=== PATIENT | female | born 1965 | race Caucasian/White ===

== ENCOUNTER 2016-04-17 01:05 | Inpatient (IN) | payer SELFPAY ==
[~2016-04-17] VITALS: Ht 154.9 cm; Wt 80.5 kg
[2016-04-17] VITALS (24 sets, daily range): BP systolic 99–133; BP diastolic 55–86; PULSE 77–98; RESP 12–18; Ht 154.9 cm; Wt 80.5 kg
[2016-04-17] MEDS ORDERED: ONDANSETRON 4 MG INJ IV STA (05:11)
[2016-04-17] MEDS ORDERED: SOD CHLORIDE 0.9% 1,000 ML IV STA (05:11)
[2016-04-17] MEDS ORDERED: morphine 2 MG INJ IV STA (05:11)
[2016-04-17 05:58] LABS: BASOPHILS % 0.4 % (0.0-2.0); EOSINOPHILS # 0.1 10^3/ul (0.0-0.5); EOSINOPHILS % 1.4 % (0.0-7.0); HEMATOCRIT 40.8 % (37.0-47.0); HEMOGLOBIN 13.9 g/dl (12.0-16.0); LYMPHOCYTES # 2.5 10^3/ul (0.8-2.9); LYMPHOCYTES % 34.7 % (15.0-51.0); MEAN CORPUSCULAR HEMOGLOBIN 30.5 pg (29.0-33.0); MEAN CORPUSCULAR HGB CONC 34.2 g/dl (32.0-37.0); MEAN CORPUSCULAR VOLUME 89.4 fl (82.0-101.0); MONOCYTE # 0.5 10^3/ul (0.3-0.9); MONOCYTES % 6.6 % (0.0-11.0); NEUTROPHIL # 4.1 10^3/ul (1.6-7.5); NEUTROPHILS % 56.9 % (39.0-77.0); PLATELET COUNT 182 10^3/UL (140-440); RED BLOOD COUNT 4.56 10^6/ul (4.20-5.40); UNCORRECTED WBC 7.2 10^3/ul (4.8-10.8); WHITE BLOOD COUNT 7.2 10^3/ul (4.8-10.8)
[2016-04-17 06:04] LABS: INR 0.9; PROTIME 12.1 Sec (12.2-14.2); PT RATIO 0.9
[2016-04-17 06:05] LABS: PARTIAL THROMBOPLASTIN TIME 26.7 Sec (25.0-35.0)
[2016-04-17 06:07] LABS: ALBUMIN 4.7 g/dl (3.3-4.9)
[2016-04-17 06:08] LABS: POTASSIUM 4.3 mmol/L (3.5-5.1)
--- NOTE | 2016-04-17 06:08 | RADRPT ---
PROCEDURE: CT Abdomen and pelvis without contrast. CLINICAL INDICATION: Abdominal pain. TECHNIQUE: CT scan of the abdomen and pelvis was performed on a multi-detector high-resolution CT scanner. Contiguous axial images were obtained from the lung bases to the ischial tuberosities wit hout intravenous contrast. Coronal and sagittal reformatted images were also obtained. Images were reviewed on the PACS workstation. One or more of the following dose reduction techniques were used: - Automated exposure control. - Adjustment of the mA and/or kV according to patient size. - Use of iterative reconstruction technique. Exam CTD/vol = 15.47 mGy. Total exam DLP = 873.25 mGy-cm. COMPARISON: None. FINDINGS: Evaluation of the lung bases demonstrates no pleural or parenchymal disease. Abdomen: The liver is normal in size. There is a hypodense lesion within the posterior segment of the right lobe of the liver measuring 1.8 x 1.4 cm. There is no dilatation of the biliary tree. Th e gallbladder is not distended. The spleen, pancreas and bilateral adrenal glands are within normal limits. Bilateral kidneys are normal in size with no contour deforming mass identified. There is no radiopaque renal or ureteral calculus identified. There is no hydronephrosis or hydroureter. Th ere is no retroperitoneal adenopathy. The abdominal aorta is of normal caliber with scattered ather osclerotic calcifications. There is no abnormal bowel wall thickening or distension. There is no bowel obstruction or free air . There is a mildly distended appendix extending inferior to the cecum measuring up to 10 mm in maximilian meter. There is no diverticulosis or diverticulitis. There is no ascites. Pelvis: The bladder is unremarkable. The uterus and adnexa are within normal limits. There is no significant pelvic adenopathy or free fluid. Evaluation of the osseous structures demonstrates no suspicious lytic or blastic lesion. IMPRESSION: Mildly distended appendix suspicious for early appendicitis. Clinical correlation and follow-up is r ecommended. Hypodense lesion within the right lobe of the liver, indeterminate. Further evaluation can be made by ultrasound or contrast enhanced CT. Mild vascular calcifications reflective of atherosclerosis. A call report was made to Dr. Hernandez at 06:06 a.m. .Adolph Hidalgo, MD, MD Date Time Electronically viewed and signed by .Adolph Hidalgo MD, MD on 04/17/2016 06:08 .T/
[2016-04-17 06:10] LABS: ADD UMIC YES; ALBUMIN/GLOBULIN RATIO 1.23; BILIRUBIN,INDIRECT 0.1 mg/dl (0-1.1); BILIRUBIN,TOTAL 0.1 mg/dl (0.2-1.3); CREATININE 0.69 mg/dl (0.44-1.00); TOTAL PROTEIN 8.5 g/dl (6.1-8.1); URINE BILIRUBIN (Dip) NEGATIVE (NEGATIVE); URINE BLOOD (Dip) TRACE (NEGATIVE); URINE COLOR LT. YELLOW (YELLOW); URINE GLUCOSE (Dip) NEGATIVE (NEGATIVE); URINE KETONES (Dip) NEGATIVE (NEGATIVE); URINE LEUKOCYTE ESTERASE (Dip) NEGATIVE (NEGATIVE); URINE NITRITE (Dip) NEGATIVE (NEGATIVE); URINE TOTAL PROTEIN (Dip) NEGATIVE (NEGATIVE); URINE UROBILINOGEN (Dip) 0.2 E.U./dL (0.1-1.0)
[2016-04-17 06:11] LABS: CALCIUM 9.8 mg/dl (8.4-10.2)
[2016-04-17 06:20] LABS: CONDITION 1
[2016-04-17 06:36] LABS: BACTERIA,URINE MODERATE; SQUAMOUS EPITHELIAL CELL,UR MODERATE; URINE RBCS NONE SEEN /HPF (0)
--- NOTE | 2016-04-17 06:55 | ERA ---
ER Documentation Chief Complaint Date/Time DATE: 04/17/16 TIME: 06:53 Chief Complaint AP X3 Days, Nausea HPI This 30-year-old female states that she had abdominal pain that begun yesterday and her mid abdomen. Today the pain localizing to the right lower quadrant. She' s also had nausea with no vomiting. Denies fever and chills. Pain is described as a sharp pain that is intermittent and comes in waves. The pain is gotten worse. ROS All systems reviewed and are negative except as per history of present illness. Allergies Allergies: Coded Allergies: No Known Allergy (Unverified , 04/17/16) PMhx/Soc Medical and Surgical Hx: pt denies Medical Hx, pt denies Surgical Hx History of Surgery: No Anesthesia Reaction: No Hx Neurological Disorder: No Hx Respiratory Disorders: No Hx Cardiac Disorders: No Hx Psychiatric Problems: No Hx Miscellaneous Medical Probl: No Hx Alcohol Use: No Hx Substance Use: No Hx Tobacco Use: Yes Smoking Status: Current every day smoker Physical Exam Vitals Vital Signs Date Time Temp Pulse Resp B/P Pulse Ox O2 Delivery O2 Flow Rate FiO2 04/17/16 06:44 78 18 136/68 99 Room Air 04/17/16 01:23 98.2 102 18 168/77 99 Physical Exam Const: [] No distress Head: Atraumatic Eyes: Normal Conjunctiva ENT: Normal External Ears, Nose and Mouth. Neck: Full range of motion..~ No meningismus. Resp: Clear to auscultation bilaterally Cardio: Regular rate and rhythm, no murmurs Abd: Soft, right lower quadrant tenderness with mild voluntary guarding,, non distended. Normal bowel sounds Skin: No petechiae or rashes Back: No midline or flank tenderness Ext: No cyanosis, or edema Neur: Awake and alert and oriented 3, no focal deficits Psych: Normal Mood and Affect Result Diagram: 04/17/16 0524 04/17/16 0524 Results 24 hrs Laboratory Tests Test 04/17/16 05:24 Activated Partial Thromboplast Time 26.7Sec Alanine Aminotransferase (ALT/SGPT) 85IU/L Albumin 4.7g/dl Albumin/Globulin Ratio 1.23 Alkaline Phosphatase 126IU/L Anion Gap 20 Aspartate Amino Transf (AST/SGOT) 86IU/L Basophils # 0.010^3/ul Basophils % 0.4% Blood Morphology Comment Blood Urea Nitrogen 15mg/dl Calcium Level 9.8mg/dl Carbon Dioxide Level 26mmol/L Chloride Level 106mmol/L Creatinine 0.69mg/dl Direct Bilirubin 0.00mg/dl Eosinophils # 0.110^3/ul Eosinophils % 1.4% Globulin 3.80g/dl Glucose Level 112mg/dl Hematocrit 40.8% Hemoglobin 13.9g/dl INR International Normalized Ratio 0.90 Indirect Bilirubin 0.1mg/dl Lipase 176U/L Lymphocytes # 2.510^3/ul Lymphocytes % 34.7% Mean Corpuscular Hemoglobin 30.5pg Mean Corpuscular Hemoglobin Concent 34.2g/dl Mean Corpuscular Volume 89.4fl Mean Platelet Volume 11.0fl Monocytes # 0.510^3/ul Monocytes % 6.6% Neutrophils # 4.110^3/ul Neutrophils % 56.9% Nucleated Red Blood Cells # 0.010^3/ul Nucleated Red Blood Cells % 0.0/100WBC Platelet Count 11267^3/UL Potassium Level 4.3mmol/L Prothrombin Time 12.1Sec Prothrombin Time Ratio 0.9 Red Blood Count 4.5610^6/ul Red Cell Distribution Width 13.0% Sodium Level 148mmol/L Total Bilirubin 0.1mg/dl Total Protein 8.5g/dl Urine Bacteria MODERATE Urine Bilirubin NEGATIVE Urine Clarity CLEAR Urine Color LT. YELLOW Urine Glucose NEGATIVE% Urine Hemoglobin TRACE Urine Ketones NEGATIVE Urine Leukocyte Esterase NEGATIVE Urine Microscopic RBC NONE SEEN/HPF Urine Microscopic WBC 5-10/HPF Urine Nitrite NEGATIVE Urine Specific Haworth 1.025 Urine Squamous Epithelial Cells MODERATE Urine Total Protein NEGATIVE Urine Urobilinogen 0.2 E.U./dL Urine pH 5.5 White Blood Count 7.210^3/ul Current Medications Medications (Trade) Dose Ordered Sig/Chana Route PRN Reason Start Time Stop Time Status Last Admin Dose Admin Sodium Chloride (NS) 1,000 ml @ 1,000 mls/hr Q1H STAT IV 04/17/16 05:11 04/17/16 06:10 DC 04/17/16 05:44 Morphine Sulfate (morphine) 2 mg ONCE STAT IV 04/17/16 05:11 04/17/16 05:13 DC 04/17/16 05:45 Ondansetron HCl (Zofran Inj) 4 mg ONCE STAT IV 04/17/16 05:11 04/17/16 05:13 DC 04/17/16 05:45 Procedures/MDM Acute appendicitis. Patient was given IV fluids as well as Zofran which resolved her nausea. She is also given a small dose of morphine. Stated that she still get pinges of pain but did not want any further pain medication. Spoke with Dr. Schwartz, general surgeon on-call, who will be taking the case. I also notified Dr. Dawson be admitting the patient to medical surgical floor. Departure Diagnosis: Primary Impression: Acute appendicitis Condition: Serious BIPIN CAMPOS DO Apr 17, 2016 06:55
[2016-04-17] MEDS ORDERED: ACETAMINOPHEN 325 MG TAB PO PRN (07:00)
[2016-04-17] MEDS ORDERED: ONDANSETRON 4 MG INJ IV PRN ×4 (07:00→14:00)
[2016-04-17] MEDS ORDERED: morphine 2 MG INJ IV PRN ×3 (07:30→19:00)
[2016-04-17] MEDS ORDERED: ACETAMINOPHEN 650 MG SUPP PR PRN (07:30)
[2016-04-17] MEDS ORDERED: NACL 0.9% 3 ML SYG IV SCH (07:30)
[2016-04-17] MEDS ORDERED: morphine 4 MG/ML VIAL IV PRN (07:36)
[2016-04-17] MEDS: DEXTROSE 5%-0.45% NACL 1,000 ML IV SCH ×3 (07:58→23:21)
--- NOTE | 2016-04-17 11:52 | CONS ---
DATE OF ADMISSION: 04/17/2016 DATE OF CONSULTATION: 04/17/2016 REASON FOR CONSULTATION: Acute appendicitis. HISTORY OF PRESENT ILLNESS: The patient is an otherwise healthy 50-year-old female who presents to the emergency room referred from urgent care. She has a 1 day history of nonspecific abdominal pain localizing to the right lower quadrant. In the emergency room, she was noted to have a tender righ t lower quadrant and a CT scan compatible with early acute appendicitis. The patient was admitted a nd surgical consultation was requested in that regard. She has had no fevers, chills or change in b owel or bladder habits. REVIEW OF SYSTEMS: HEAD, EARS, EYES, NOSE AND THROAT: Unremarkable. PULMONARY: No history of shortness of breath, asthma or pneumonia. CARDIAC: No history of chest pain, ME or arrhythmia. ABDOMEN: As in the HPI. No previous abdominal surgeries. GENITOURINARY: Asymptomatic. MEDICATIONS: None. ALLERGIES: NONE. PHYSICAL EXAMINATION: GENERAL: The patient is an alert, oriented 50-year-old female in no acute distress. HEENT: Head, ears, eyes, nose and throat within normal limits. LUNGS: Clear. HEART: Regular rhythm. ABDOMEN: Tender in the right lower quadrant without guarding or rebound. EXTREMITIES: Unremarkable. LABORATORY DATA: Patient's hematocrit is 40.8 with a white count of 7200. BUN, glucose, electrolyt es are unremarkable. CT findings as noted above. IMPRESSION: Acute appendicitis. PLAN: The patient will be benefited by laparoscopic appendectomy. I have discussed the procedure, outcomes, expectations, alternatives and risks in detail with the patient, who has an excellent unde rstanding of the nature of her situation and agrees to the proposed plan of therapy as outlined. Dictated By: JF SHOEMAKER/SHINE Conf#: [id number] DID#: [id number]
[2016-04-17] MEDS ORDERED: BUPIVACAINE 0.25% (MPF) 30 ML INJ ONE (12:27)
[2016-04-17] MEDS ORDERED: ROCURONIUM 50 MG INJ ONE (12:56)
[2016-04-17] MEDS ORDERED: PROPOFOL 20 ML ONE (12:56)
[2016-04-17] MEDS ORDERED: ONDANSETRON 4 MG INJ ONE (12:57)
[2016-04-17] MEDS ORDERED: MIDAZOLAM 1 MG/ML 2 ML INJ ONE (12:57)
[2016-04-17] MEDS ORDERED: GLYCOPYRROLATE 0.4 MG INJ ONE (13:22)
[2016-04-17] MEDS ORDERED: KETOROLAC 30 MG INJ ONE (13:22)
[2016-04-17] MEDS ORDERED: NEOSTIGMINE 3 MG/3 ML SYRINGE ONE (13:22)
[2016-04-17] MEDS ORDERED: CEFAZOLIN 1 GM INJ ONE (13:22)
[2016-04-17] MEDS ORDERED: METOCLOPRAMIDE 10 MG INJ IV PRN (13:30)
[2016-04-17] MEDS ORDERED: DIPHENHYDRAMINE 50 MG INJ IV PRN (13:30)
[2016-04-17] MEDS ORDERED: HYDROmorphONE (0.2 MG/ML) 10ML SYG IV PRN ×3 (13:30)
[2016-04-17] MEDS ORDERED: HYDROmorphONE 2 MG/ML SYG ONE (13:44)
[2016-04-17] MEDS ORDERED: MEPERIDINE 25 MG INJ ONE (13:56)
--- NOTE | 2016-04-17 14:31 | OPR ---
DATE OF OPERATION: 04/17/2016 PREOPERATIVE DIAGNOSIS: Acute appendicitis. POSTOPERATIVE DIAGNOSIS: Acute appendicitis without localized peritonitis. PROCEDURE: Laparoscopic appendectomy. SURGEON: Jf Schwartz MD ANESTHESIA: General. ANESTHESIOLOGIST: Tiffanie Gruber MD OPERATIVE REPORT: After satisfactory general anesthesia was achieved, the abdomen was prepped and d raped in the usual fashion. The abdomen was insufflated with carbon dioxide through an umbilical Ve ress needle to 15 mmHg pressure. The Veress needle was removed and the umbilical incision extended to 5 mm, through which a 5 mm trocar was placed. A 5 mm 0-degree lens was placed. Laparoscopy show ed an acutely inflamed appendix without localized peritonitis. Under direct visualization, a 5 mm s uprapubic trocar was placed as well as a 12 mm left lower quadrant trocar. A window was made in the mesoappendix through which a vascular linear cutter was placed across the b ase of the cecum, closed and fired, disconnecting the appendix from the cecum. A second firing of t he vascular linear cutter fully freed the appendix, which was placed intact into an EndoCatch, remov ed via the 12 mm port site. Hemostasis of the staple lines was total and irrigant returned clear. The fascial defect in the left lower quadrant was closed with a #1 Vicryl with the assistance of a l aparoscopic closure device. The abdomen was then desufflated. The skin punctures were infiltrated with 30 mL of 0.25% Marcaine with epinephrine and closed with flor. Operative blood loss less th an 10 mL. Sponge and needle counts reported as correct x2. The patient tolerated the procedure wel l and without incident or complication. Dictated By: JF SHOEMAKER/SHINE Conf#: [id number] DID#: [id number]
[2016-04-17] MEDS ORDERED: OXYCODONE/ACETAMINOPHEN (5/325) TAB PO PRN (16:00)
[2016-04-17] MEDS: OXYCODONE/ACETAMINOPHEN (5/325) TAB PO PRN ×2 (16:05→23:20)
[2016-04-17] MEDS: CALCIUM CARBONATE 500 MG CHEW TAB PO SCH (18:07)
[2016-04-18 05:20] LABS: ALBUMIN 3.6 g/dl (3.3-4.9); POTASSIUM 4.3 mmol/L (3.5-5.1)
[2016-04-18 05:22] LABS: BILIRUBIN,INDIRECT 0.3 mg/dl (0-1.1); BILIRUBIN,TOTAL 0.3 mg/dl (0.2-1.3); CREATININE 0.67 mg/dl (0.44-1.00)
[2016-04-18 05:23] LABS: ALBUMIN/GLOBULIN RATIO 1.33; TOTAL PROTEIN 6.3 g/dl (6.1-8.1)
[2016-04-18 05:24] LABS: CALCIUM 8.9 mg/dl (8.4-10.2); MAGNESIUM 1.9 mg/dl (1.7-2.5)
[2016-04-18 05:37] LABS: HEMATOCRIT 33.1 % (37.0-47.0); HEMOGLOBIN 11.2 g/dl (12.0-16.0); MEAN CORPUSCULAR HEMOGLOBIN 30.3 pg (29.0-33.0); MEAN CORPUSCULAR HGB CONC 33.7 g/dl (32.0-37.0); MEAN CORPUSCULAR VOLUME 89.8 fl (82.0-101.0); MEAN PLATELET VOLUME 11.9 fl (7.4-10.4); RED BLOOD COUNT 3.69 10^6/ul (4.20-5.40); WHITE BLOOD COUNT 8.7 10^3/ul (4.8-10.8)
[2016-04-18] MEDS: OXYCODONE/ACETAMINOPHEN (5/325) TAB PO PRN ×2 (07:26→12:50)
[2016-04-18 08:05] VITALS: BP 109/56; RESP 20
[2016-04-18] MEDS: CALCIUM CARBONATE 500 MG CHEW TAB PO SCH ×2 (08:27→13:43)
[2016-04-18] MEDS: DEXTROSE 5%-0.45% NACL 1,000 ML IV SCH (08:28)
[2016-04-18 08:59] LABS: CONDITION 1; LH ANALYZER COMMENTS 1; PLATELET COUNT 162 10^3/UL (140-440); SUSPECT 1; UNCORRECTED WBC 11.1 10^3/ul (4.8-10.8)
[2016-04-18 10:39] LABS: EOSINOPHILS # 0.1 10^3/ul (0.0-0.5); LYMPHOCYTES # 2.8 10^3/ul (0.8-2.9); MONOCYTE # 0.3 10^3/ul (0.3-0.9); NEUTROPHIL # 5.3 10^3/ul (1.6-7.5)
--- NOTE | 2016-04-18 12:43 | PDOCDIS ---
Discharge Instructions CONDITION Patient Condition: Stable HOME CARE INSTRUCTIONS: Diet Instructions: Regular ACTIVITY: Activity Restrictions: Slowly Increase Activity FOLLOW UP/APPOINTMENTS Appointments Take your meds if needed, see your doctor in clinic in 1-2 weeks for follow up. WALT SIMS Apr 18, 2016 12:43
[2016-04-18] MEDS ORDERED: ONDA4VIA2 IV (12:45)
[2016-04-18] MEDS ORDERED: Oxycodone/Acetamin (5/325) PO (12:45)
--- NOTE | 2016-04-18 13:15 | DS ---
DATE OF ADMISSION: 04/17/2016 DATE OF DISCHARGE: 04/18/2016 This is a 51-year-old female originally admitted on admission. It showed 04/17/2001 and being disch arged home pending approval from surgery team on 04/18/2016. The patient came in with abdominal edwige n. She was found with acute appendicitis. Her labs were normal. She underwent a laparoscopic appe ndectomy. Patient tolerated the procedure well. Afterwards, her vital signs were stable. She was able to tolerate a p.o. diet and ambulate, and if we get clearance from the surgery team today, she will be discharged home today in improved condition. If she goes today, she will be sent with Zofra n 4 mg p.o. q.6h. p.r.n., Percocet 5/325 one tab p.o. q.6h. She will need to follow up [facility] doctor in the clinic in the next 1 to 2 weeks. FINAL DIAGNOSES: 1. Abdominal pain secondary to acute appendicitis, status post laparoscopic appendectomy. 2. Mild hypernatremia, resolved. Time spent discharging patient: 35 minutes. Dictated By: WALT BUSTILLO/SHINE Conf#: [id number] DID#: [id number]
--- NOTE | 2016-04-18 13:34 | PN ---
DATE: 04/18/2016 SUBJECTIVE: Status post laparoscopic appendectomy, postoperative day #1. The patient is markedly i mproved symptomatically. She remains afebrile with a normal white count. Her abdominal examination is benign. PLAN: Patient is cleared for discharge home today. Office followup 1 week for staple removal. Dictated By: JF SHOEMAKER/SHINE Conf#: [id number] DID#: [id number]
--- NOTE | 2016-04-19 07:16 | HP ---
DATE OF ADMISSION: 04/17/2016 TIME SEEN: 7 a.m. CHIEF COMPLAINT: Abdominal pain. HISTORY OF PRESENT ILLNESS: The patient is a 50-year-old female with no significant past medical hi story, who presents to the emergency department with a chief complaint of abdominal pain. The pain is localized in the right lower quadrant region. She stated that she has been having this kind of p roblem for many years, but this particular episode started 3 days ago. She reported associated naus ea but no vomiting. She also denied any diarrhea, fever, chills, chest pain, shortness of breath. When she presented to the ER a CAT scan of the abdomen and pelvis showed early appendicitis wi th radiology recommending a followup and additional imaging. Her vitals are stable except for eleva jeff AST and ALT as well as sodium of 148. CBC and CMP are within acceptable range. REVIEW OF SYSTEMS: Was obtained and was negative except as in the HPI. PAST MEDICAL HISTORY: As per HPI. SOCIAL HISTORY: Denies any history of alcohol or illicit drug use. Drinks alcohol rarely. ALLERGIES: NO KNOWN DRUG ALLERGIES. HOME MEDICATIONS: None. PHYSICAL EXAMINATION: VITAL SIGNS: Stable. GENERAL: Overweight female lying in the gurney in no acute distress, answering questions appropria tely and able to speak in full sentences. HEENT: No obvious head deformity. Pupils reactive to light. Extraocular muscles intact. CARDIOVASCULAR: Regular rate and rhythm. No extra sounds. LUNGS: Clear. ABDOMEN: Soft. There is tenderness in the right lower quadrant region, mainly to deep palpation wi th minimal guarding to deep palpation. No rigidity. No rebound tenderness. There are positive bow el sounds. EXTREMITIES: No edema. NEUROLOGIC: No focal deficit. She is alert and oriented x4. She had a Alvarado. Pertinent positive as in HPI. IMAGING: CT abdomen and pelvis with results as per HPI. IMPRESSION: 1. Early appendicitis. 2. Right lower quadrant abdominal pain, . 3. Liver lesion. 4. Abnormal enzymes. PLAN: 1. Will keep her n.p.o. with IV fluids. 2. Will provide pain medication as needed. 3. She is awaiting surgical evaluation by Dr. Mcfarlane. 4. Will obtain abdominal ultrasound to further evaluate the liver lesion that was noted on the CAT scan. Therefore, . 5. Further workup and management as per clinical course. Dictated By: WILTON MINAYA/SHINE Conf#: [id number] DID#: [id number]
== END 2016-04-18 14:50 | disposition home or self-care (01) | DRG 343 ==
LOC: E/R 01:05 → MS1 06:52
PROVIDERS: ADMIT Internal Medicine; ATTEND Internal Medicine
PROC: 0DTJ4ZZ Resection of Appendix, Percutaneous Endoscopic Approach (ICD-10-PCS; principal; 2016-04-17 13:00)
DX: K35.80 Unspecified acute appendicitis (principal)
CPT/HCPCS: 36415; 74176; 80053; 81001; 81003; 83690; 83735; 84100; 84703; 85025; 85610; 85730; 88304; 96374; 96375; J0690; J1170; J1885; J2175; J2250; J2270; J2405; J2710; J7030; J7042